=== PATIENT | female | born 1965 | race Caucasian/White ===

== ENCOUNTER → 2021-08-28 | Outpatient (CLI) | payer BC ==
[~2021-08-28] MED LIST: ASPIRIN 32325 MG/TAB PO; FERROUS SU325 MG/TAB PO; FOLIC ACID 40400 MCG PO; LEVOXYL0.075 MG PO; MILK OF MA400 MG/5 M; NORCO 325 MG-7.1 TAB PO; ROXICODONE 55 MG/TAB PO; SENOKOT8.6 MG; SENOKOT8.6 MG PO; THERAGRAN1 TA1 PO; TYLENOL 500MG500 MG PO; VITAMIN C500 MG PO; XARELTO10 MG PO
== END ==
LOC: DIA.ED 07:29
DX: E11.9 Type 2 diabetes mellitus without complications (principal); Z79.84 Long term (current) use of oral hypoglycemic drugs; E78.5 Hyperlipidemia, unspecified
CPT/HCPCS: G0108